=== PATIENT | female | born 1940 | race Caucasian/White ===

== ENCOUNTER → 2023-12-25 14:09 | Emergency (ER) | payer OTHER, SELFPAY ==
[2023-12-25 14:14] VITALS: BP 167/96
--- NOTE | 2023-12-25 14:20 | ED.GENMED ---
History of Present Illness
General
Chief Complaint: Fall
Time Seen by Provider: 12/25/23 14:15
History of Present Illness
History of Present Illness:
Patient presents the emergency department after head injury. She had a mechanical fall where she was using her walker and states it got stuck on the ground. She tripped over the side of the walker and struck her head on the corner of the wall.
She was wearing her glasses which damaged the area above her left eyebrow. There wa no loss of consciousness. She denies any injuries elsewhere.
Past History
Past History
ED Past Medical History: Other (Degenerative osteoarthritis and osteoporosis.) and Other (DVT)
ED Past Surgical History: Orthopedic (Right hip revision June 2011, [facility])
Social History
Tobacco: Non-smoker
Alcohol: Occasional
Drug: None
Personal:
Living: with family
Employment: Retired
Family History
Family History: Hypertension
Phy Exam
Physical Exam
Physical Exam:
GENERAL APPEARANCE: NAD, well developed/ well nourished
EYES lids/conjunctiva normal
EARS/NOSE/THROAT Mucous membranes moist, uvula midline without oral pharyngeal erythema, exudate or swelling
HEAD/NECK normocephalic , there are 2 lacerations above the left eyebrow 1 is linear and 3 cm transverse. Lateral to that there is a 4 cm jagged laceration ,neck is supple.
RESPIRATORY respiratory effort normal, speaks in full sentences, no accessory muscle use. Lungs clear to auscultation without rhonchi, wheezes, rales
CARDIAC Regular rate and rhythm, no edema.
ABDOMINAL Soft, ND/NT. No pulsatile masses on exam, rebound tenderness, Ware sign or pain over Mcburney's point.
MUSCLES/EXTREMITIES No abnormal range of motion, no swelling, no tenderness throughout
SKIN Warm, pink and dry. No rashes
NEUROLOGICAL Speech is clear and appropriate. Normal level of consciousness. 5/5 strength in all extremities.
PSYCH Normal mood and affect. Judgement/competence is appropriate
Course
Orders/Labs/Results
Orders:
Orders
12/25/23 14:19
CT Cervical Spine W/o Iv Contr Urgent
Comment:
Reason For Exam: trauma
CT Head W/o Iv Contrast Urgent
Comment:
Reason For Exam: fall with head injury
Tetanus/Diphth/Acelpertussis [Adacel] 0.5 ml IM .ONCE ONE
12/25/23 16:46
Tetanus/Diphth/Acelpertussis [Adacel] 0.5 ml .ROUTE .STK-MED ONE
Vital Signs
Initial and Last Documented VS:
Initial Vital Signs
Temp Pulse Resp BP Pulse Ox
98.0 F 82 16 167/96 96
12/25/23 14:14 12/25/23 14:14 12/25/23 14:14 12/25/23 14:14 12/25/23 14:14
Last Documented Vital Signs
Temp Pulse Resp BP Pulse Ox
98.0 F 85 15 158/81 97
12/25/23 14:14 12/25/23 16:54 12/25/23 16:54 12/25/23 16:54 12/25/23 14:45
Procedures
Laceration Closure
Face:
Status of Wound: clean
Size of Wound in cm: 6
Description of Wound Edges: ragged
Preparation: cleaned with saline
Anesthesia: 1% Lidocaine with epi
Revision/Debridement: routine- no revision
Type of Closure: single layer closure
Skin Closure Material: 6-0 nylon
Number of sutures: 10
*Critical Care Note
Total Time (30-74mins, 75-104mins- exclusive of procedures): Not Applicable
ED Attending Note
ED Attending Note
ED Attending Note:
No intracranial or cervical traumatic injury noted on CT scan. Lacerations repaired without complication. Tetanus addressed. Patient ambulating with her walker at baseline. Stable for close outpatient follow-up.
-
Portions of this chart may have been created with voice recognition software.� Occasional wrong word or��sound alike� substitutions may have occurred due to the inherent limitations of voice recognition software.
Discharge Plan
Departure
Patient Disposition: Home (Routine Discharge)
Date of Disposition: 12/25/23
Time of Disposition: 17:05
Patient with high blood pressure during this ER visit?: Yes
Discharge Problem:
Face lacerations, Closed head injury
Prescriptions:
No Action
latanoprost 1 DROP drops
1 drp BOTH EYES HS
calcium carbonate [Oyster Shell Calcium 500] 500 MG tablet
500 mg PO DAILY
ascorbic acid (vitamin C) [Vitamin C] 500 MG tablet
500 mg PO DAILY
B-complex with vitamin C 1 CAPLET tablet
1 cap PO DAILY
cholecalciferol (vitamin D3) 1,000 UNITS tablet
1,000 units PO BID
Prolia 60 MG/ML syringe
60 mg SQ [id number]
multivitamin with folic acid [Tab-A-Aria] 1 TABLET tablet
1 tab PO DAILY
Referrals:
Taho Morton MD [Family Provider] -
Activity Restrictions/Additional Instructions:
sutures out in 5-7 days
return to ER with new or worsening symptoms
Interventions
Interventions:
*Risk Screen - Suicide Last Done: 12/25/23 14:23
*General Assessment Last Done: 12/25/23 14:23
*Neglect/Abuse Screening Last Done: 12/25/23 14:23
*ED COVID-19 Vaccine History Last Done: 12/25/23 14:23
ED-Musculoskeletal Assessment Last Done: 12/25/23 14:26
ED- Neurological Assessment Last Done: 12/25/23 16:53
ED-Skin Assessment Last Done: 12/25/23 16:53
Discharge Date and Time
Print Language: [place]
[2023-12-25 14:21] VITALS: BP 167/96
[2023-12-25 14:25] VITALS: BMI 22.5
[2023-12-25] MEDS: ADACEL 0.5 ML IM (16:46)
[2023-12-25 16:52] VITALS: BP 175/89
[2023-12-25 16:54] VITALS: BP 158/81
== END | disposition home or self-care (01) ==
LOC: EMR 14:09
PROVIDERS: EMERGENCY PHYSICIAN Emergency Medicine; FAMILY PHYSICIAN Family Medicine
DX: S01.81XA Laceration without foreign body of other part of head, initial encounter (principal); S09.90XA Unspecified injury of head, initial encounter; R03.0 Elevated blood-pressure reading, without diagnosis of hypertension; W18.09XA Striking against other object with subsequent fall, initial encounter; Z23 Encounter for immunization; M19.90 Unspecified osteoarthritis, unspecified site; M81.0 Age-related osteoporosis without current pathological fracture; Z86.718 Personal history of other venous thrombosis and embolism; Z88.1 Allergy status to other antibiotic agents; Z88.0 Allergy status to penicillin
CPT/HCPCS: 99284; 12014; 90471; 70450; 72125; 90715

== ENCOUNTER 2024-07-01 20:11 | Emergency (ER) | payer OTHER, SELFPAY ==
[2024-07-01 20:12] VITALS: BP 96/62
[2024-07-01 20:32] LABS: % Basophils 0.8 % (0-2); % Eosinophils 6.6 % (0-6); % Immature Granulocytes 0.3 % (0-0.5); % Lymphocytes 22.6 % (20.5-51.1); % Monocytes 11.8 % (1.7-9.3); % Neutrophils 57.9 % (42.2-75.2); Absolute Basophils 0.1 10^3/uL (0-0.2); Absolute Eosinophils 0.4 10^3/uL (0-0.7); Absolute Lymphocytes 1.5 10^3/uL (1.2-3.4); Absolute Monocytes 0.8 10^3/uL (0.1-0.6); Absolute Neutrophils 3.8 10^3/uL (1.4-6.5); Hemoglobin 12.2 g/dL (12.0-16.0); Mean Corp Hgb Conc. 33.9 g/dL (33.0-37.0); Mean Corpuscular Hgb 31.5 pg (27.0-31.0); Mean Platelet Volume 8.7 fL (7.4-10.4); Nucleated Red Blood Cells % 0 %; Platelet Count 234 10^3/uL (130-400); Red Blood Cell Count 3.87 10^6/uL (4.20-5.40); Red Cell Dist. Width 13.7 % (11.5-14.5); White Blood Cell Count 6.5 10^3/uL (4.8-10.8)
[2024-07-01 20:58] LABS: Urine Albumin 1+ (Neg - Trace); Urine Bilirubin Negative (Negative); Urine Character Clear (Clear); Urine Color Amber; Urine Glucose Negative (Negative); Urine Ketone 1+ (Negative); Urine Leukocyte 1+ (Negative); Urine Nitrite Negative (Negative); Urine Occult Blood 1+ (Negative); Urine Urobilinogen 1+ (Neg - 1+)
[2024-07-01 21:11] LABS: ALT (SGPT) 16 U/L (0-35); AST (SGOT) 24 U/L (14-36); Albumin 4.2 g/dl (3.5-5.0); Alkaline Phosphatase 75 U/L (38-126); Blood Urea Nitrogen 38 mg/dl (7-17); Calcium 10.2 mg/dl (8.4-10.2); Carbon Dioxide 27 mmol/L (22-30); Chloride 106 mmol/L (98-107); Glucose 94 mg/dl (70-99); Sodium 141 mmol/L (135-145); Total Bilirubin 0.8 mg/dl (0.2-1.3); eGFR > 60.00
[2024-07-01 21:26] LABS: Urine Bacteria Few (Negative); Urine Calcium Oxalate Crystals Present; Urine Red Blood Cell 0-2 /HPF (0-2); Urine Squamous Cell 16-20 /LPF (Few); Urine White Cell 0-2 /HPF (0-5)
[2024-07-01 23:25] VITALS: BP 134/81
[2024-07-01 23:36] VITALS: BMI 20.9
--- NOTE | 2024-07-01 23:41 | ED.GENMED ---
History of Present Illness
General
Chief Complaint: Change in Mental Status
Source: patient and family
Time Seen by Provider: 07/01/24 23:24
History of Present Illness
History of Present Illness:
83-year-old female with past medical history of previous DVT presenting to the emergency department for evaluation of intermittent confusion, intermittent visual hallucinations and daughter being concern for patient having a possible urinary tract
infection. Patient states she feels as if she is in her usual state of health. Daughter does note that they are currently working the patient up as an outpatient for these episodes of confusion and falls, had an MRI done at [place] on Thursday
but they are unaware of these results. Patient currently lives on her own and they have started the process to try and get the patient to a long-term care residence or further help at home but they state they are not fully ready to commit to
anything yet.
Past History
Past History
ED Past Medical History: Other (Degenerative osteoarthritis and osteoporosis.) and Other (DVT)
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
Social History
Tobacco: Non-smoker
Alcohol: Occasional
Drug: None
Personal:
Living: alone
Employment: Retired
Family History
Family History: Hypertension
Review of Systems
Review of Systems
All Other Systems: ROS reviewed and negative except as documented in HPI and ROS
Phy Exam
Physical Exam
Physical Exam:
GENERAL: Alert , in no apparent distress
HEAD: Normocephalic atraumatic
EYE: conjunctiva clear
NECK: Supple
ENT: o/p clr, mmm.
CARDIAC: Regular rate and rhythm, systolic murmur left sternal border
LUNGS: Clear breath sounds bilaterally, no acute respiratory distress, no wheezes/rales/rhonchi
NEUROLOGICAL: Alert and oriented x 3, answers questions appropriately
SKIN: Warm and dry, skin intact.
MUSCULOSKELETAL: well perfused.
PSYCH: Normal and appropriate interaction.
Scores
Heart Failure Risk
Heart Failure Risk Score: Not Applicable
Heart Score for Chest Pain Patients
STEMI patient?: Not applicable
Withdrawal Assessment of Alcohol
Withdrawal Assessment Completed?: Not applicable
Course
Orders/Labs/Results
Orders:
Orders
07/01/24 20:24
Complete Blood Count/With Diff Urgent
Comprehensive Metabolic Panel Urgent
Creatine Phosphokinase Urgent
Comment: ADD ON
07/01/24 20:50
Urinalysis Reflex To Culture Urgent
Date Specimen was Collected: 07/01/24
Time Specimen was Collected: 20:17
Urine Microscopic Reflex Cult Urgent
Urine Culture Urgent
TESSA Source: U
Specimen Description:
Date Specimen was Collected: 07/01/24
Time Specimen was Collected: 20:17
07/01/24 23:24
Add On- LAB Urgent
Tests Added?: CPK
0.9% Sodium Chloride 1000 ml [Nss] 1,000 ml IV BOLUS
07/01/24 23:36
Case Management Consult ONCE
Case Management Consult: VN/Home Care
Abnormal Lab Results
07/01/24 07/01/24
20:24 20:50
RBC 3.87 L 10^6/uL
(4.20-5.40)
Hct 36.0 L %
(37.0-47.0)
MCH 31.5 H pg
(27.0-31.0)
Absolute Monos (auto) 0.8 H 10^3/uL
(0.1-0.6)
Monocytes % 11.8 H %
(1.7-9.3)
Eosinophils % 6.6 H %
(0-6)
BUN 38 H mg/dl
(7-17)
Urine Ketones 1+ A
(Negative)
Ur Occult Blood Reflex 1+ A
(Negative)
Leukocyte Esterase Rfl 1+ A
(Negative)
Urine Bacteria (Reflex) Few A
(Negative)
Urine Albumin (Reflex) 1+ A
(Neg - Trace)
07/01/24 20:24
07/01/24 20:24
Vital Signs
Initial and Last Documented VS:
Initial Vital Signs
Temp Pulse Resp BP Pulse Ox
97.5 F 75 18 96/62 99
07/01/24 20:12 07/01/24 20:12 07/01/24 20:12 07/01/24 20:12 07/01/24 20:12
Last Documented Vital Signs
Temp Pulse Resp BP Pulse Ox
97.5 F 70 20 134/81 99
07/01/24 20:12 07/01/24 23:25 07/01/24 23:25 07/01/24 23:25 07/01/24 23:25
MDM/Problems Addressed
Differential Diagnosis Includes:
UTI, dehydration, electrolyte derangement, dementia
MDM/Problems Addressed:
83-year-old female presenting to the ER for evaluation of intermittent confusion and intermittent visual hallucinations. Patient asymptomatic at present. She is otherwise hemodynamically stable and well-appearing. Patient currently lives at home
on her own, has been falling more frequently, does have a rollator that she uses religiously. Labs and urine initiated on arrival which are mostly reassuring, BUN slightly elevated at 38. Will treat this with fluids. On record review patient had
a similar presentation about 2 years ago and was found to be in rhabdomyolysis. CPK added onto patient's labs. I did order a case management consult to help facilitate some further home care for the time being as patient ultimately wants to be
discharged home. As long as CPK not significantly elevated I do think this is a reasonable option and both patient and daughter are okay with this as well.
*Pulse Oximetry
Patient hypoxic: no
*Critical Care Note
Total Time (30-74mins, 75-104mins- exclusive of procedures): Not Applicable
Data Reviewed
Review of Other/Old Records Reveals: Labs, Records and Discharge Summary
Patient Management
Social determinants of health affecting care: Living situation and Strong social support
Escalation/DeEscalation of care consider admission/obs:
Patient CPK is within normal limits. She remains hemodynamic in no acute distress, answers all questions appropriately. Both patient and daughter the patient home. Case management to provide further help on an outpatient basis when they return to
the hospital in the morning.
ED Attending Note
-
Portions of this chart may have been created with voice recognition software.� Occasional wrong word or��sound alike� substitutions may have occurred due to the inherent limitations of voice recognition software.
Discharge Plan
Departure
Patient Disposition: Home (Routine Discharge)
Date of Disposition: 07/02/24
Time of Disposition: 00:11
Patient with high blood pressure during this ER visit?: No
Discharge Problem:
Intermittent confusion
Instructions: Delirium (confusion)
Prescriptions:
No Action
latanoprost 1 DROP drops
1 drp BOTH EYES HS
calcium carbonate [Oyster Shell Calcium 500] 500 MG tablet
500 mg PO DAILY
ascorbic acid (vitamin C) [Vitamin C] 500 MG tablet
500 mg PO DAILY
B-complex with vitamin C 1 CAPLET tablet
1 cap PO DAILY
cholecalciferol (vitamin D3) 1,000 UNITS tablet
1,000 units PO BID
Prolia 60 MG/ML syringe
60 mg SQ [id number]
multivitamin with folic acid [Tab-A-Aria] 1 TABLET tablet
1 tab PO DAILY
Interventions
Interventions:
*Risk Screen - Suicide Last Done: 07/01/24 20:12
*General Assessment Last Done: 07/01/24 20:12
*Neglect/Abuse Screening Last Done: 07/01/24 20:12
*ED COVID-19 Vaccine History Last Done: 07/01/24 20:12
ED- Pulmonary Assessment Last Done: 07/01/24 23:48
ED- Neurological Assessment Last Done: 07/01/24 23:48
ED- Cardiac Assessment Last Done: 07/01/24 23:48
Discharge Date and Time
Print Language: INDIAN
[2024-07-01] MEDS: NSS 1000 IV (23:42)
[2024-07-01 23:54] LABS: Creatine Phosphokinase 66 U/L (30-135)
[2024-07-02] VITALS: BP 131/57
--- NOTE | 2024-07-02 11:28 | CM ---
Patient was in the ED overnight
Consult for Home Health/VN completed via phone this morning with patient and daughter in lawLydia
Patient lives alone in a one floor home; family reported that patient needs some assistance with personal care
Home Health options discussed; [facility] preference; [facility]
Plan: discharged to home with Home Health/VN
== END 2024-07-02 01:02 | disposition home or self-care (01) ==
LOC: EMR 20:11
PROVIDERS: Emergency Medicine; EMERGENCY PHYSICIAN Student in an Organized Health Care Education/Training Program; FAMILY PHYSICIAN Family Medicine
DX: R41.0 Disorientation, unspecified (principal); Z86.718 Personal history of other venous thrombosis and embolism
CPT/HCPCS: 99284; 96360; 80053; 81003; 81015; 82550; 85025; 87086

== ENCOUNTER 2024-07-30 19:48 | Emergency (ER) | payer OTHER, SELFPAY ==
[2024-07-30 19:51] VITALS: BP 147/76
[2024-07-30 19:59] VITALS: BMI 21.4
[2024-07-30 20:17] LABS: % Basophils 0.8 % (0-2); % Eosinophils 3.4 % (0-6); % Immature Granulocytes 0.3 % (0-0.5); % Lymphocytes 23.2 % (20.5-51.1); % Neutrophils 61.3 % (42.2-75.2); Absolute Basophils 0.1 10^3/uL (0-0.2); Absolute Eosinophils 0.2 10^3/uL (0-0.7); Absolute Lymphocytes 1.7 10^3/uL (1.2-3.4); Absolute Monocytes 0.8 10^3/uL (0.1-0.6); Absolute Neutrophils 4.4 10^3/uL (1.4-6.5); Hematocrit 33.9 % (37.0-47.0); Hemoglobin 11.8 g/dL (12.0-16.0); Mean Corp Hgb Conc. 34.8 g/dL (33.0-37.0); Mean Corpuscular Hgb 31.9 pg (27.0-31.0); Mean Corpuscular Volume 91.6 fL (81.0-99.0); Mean Platelet Volume 8.9 fL (7.4-10.4); Nucleated Red Blood Cells % 0 %; Platelet Count 301 10^3/uL (130-400); Red Cell Dist. Width 12.6 % (11.5-14.5); White Blood Cell Count 7.1 10^3/uL (4.8-10.8)
[2024-07-30 20:31] LABS: ALT (SGPT) 11 U/L (0-35); AST (SGOT) 20 U/L (14-36); Albumin 3.5 g/dl (3.5-5.0); Alkaline Phosphatase 68 U/L (38-126); Blood Urea Nitrogen 18 mg/dl (7-17); Calcium 10.7 mg/dl (8.4-10.2); Carbon Dioxide 28 mmol/L (22-30); Chloride 104 mmol/L (98-107); Estimated Creatinine Clearance 51 ml/min; Glucose 92 mg/dl (70-99); Potassium 4.1 mmol/L (3.5-5.1); Sodium 140 mmol/L (135-145); Total Bilirubin 0.6 mg/dl (0.2-1.3); Total Protein 6.7 g/dl (6.3-8.2); eGFR > 60.00
--- NOTE | 2024-07-30 21:53 | ED.GENMED ---
History of Present Illness
General
Chief Complaint: Rectal Bleeding
Source: patient
Exam Limitations: none
Time Seen by Provider: 07/30/24 20:19
Nursing documentation reviewed up to this point in time: agreed with
History of Present Illness
History of Present Illness:
Patient with history of constipation, with lack of bowel movement despite urge over the past 3 days, presents to ED after noting blood with bowel movement this evening. Patient states that she noted pinkish color in the toilet after bowel movement.
Denies abdominal pain. Denies rectal pain. Denies recent illness. Denies nausea or vomiting. Denies fever or chills. Patient has taken gnli-azw-vgruthg stool softeners in the past, which she is not taking currently. The patient is currently
at rehab facility, secondary to multiple falls recently.
Past History
Past History
ED Past Medical History: Other (Degenerative osteoarthritis and osteoporosis.) and Other (DVT)
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
Social History
Tobacco: Non-smoker
Alcohol: Occasional
Drug: None
Personal:
Living: alone
Employment: Retired
Family History
Family History: Hypertension
Review of Systems
Review of Systems
Allergies reviewed?: Yes
All Other Systems: ROS reviewed and negative except as documented in HPI and ROS
Constitutional: Reports no symptoms; Denies fever
Respiratory: Reports no symptoms
Cardiac: Reports no symptoms
ABD/GI: Reports constipated; Denies abdominal pain, vomiting or diarrhea
Musculoskeletal: Reports no symptoms
Skin: Reports no symptoms
Neurological: Reports no symptoms
Phy Exam
Physical Exam
Physical Exam:
Physical Exam
General: no apparent distress, not acutely ill. afebrile
Head: nc/at. eomi
Neck: supple. no meningeal signs.
Heart: s1/s2 regular rate and rhythm
Lungs: no acute respiratory distress. clear bilaterally
Abdomen: normal bowel sounds. not tender. rectal exam (JORGE Wilkins, at bedside): no hemorrhoid. brown stool, heme negative. hard stools noted
Neuro: alert and oriented x 3. no focal neurological deficits
Skin: no rash
Psychiatric: well kept. interactive and cooperative
Extremities: no edema. no calf tenderness.
Course
Orders/Labs/Results
Orders:
Orders
07/30/24 20:06
Complete Blood Count/With Diff Urgent
Comprehensive Metabolic Panel Urgent
07/30/24 21:47
Phosphate Enema [Fleet Phosphate Enema-Adult] 135 ml RECTAL NOW STA
Abnormal Lab Results
07/30/24
20:06
RBC 3.70 L 10^6/uL
(4.20-5.40)
Hgb 11.8 L g/dL
(12.0-16.0)
Hct 33.9 L %
(37.0-47.0)
MCH 31.9 H pg
(27.0-31.0)
Absolute Monos (auto) 0.8 H 10^3/uL
(0.1-0.6)
Monocytes % 11.0 H %
(1.7-9.3)
BUN 18 H mg/dl
(7-17)
Calcium 10.7 H mg/dl
(8.4-10.2)
07/30/24 20:06
07/30/24 20:06
Vital Signs
Initial and Last Documented VS:
Initial Vital Signs
Temp Pulse Resp BP Pulse Ox
98.6 F 78 12 147/76 98
07/30/24 19:51 07/30/24 19:51 07/30/24 19:51 07/30/24 19:51 07/30/24 19:51
Last Documented Vital Signs
Temp Pulse Resp BP Pulse Ox
98.6 F 89 18 135/70 84
07/30/24 19:51 07/30/24 22:15 07/30/24 22:15 07/30/24 22:00 07/30/24 21:00
MDM/Problems Addressed
MDM/Problems Addressed:
Patient with stable H&H, along with heme-negative stool. Patient does not take any blood thinning medications. However, hard balls of stool noted on exam, which was removed by myself. Patient will be given Fleet enema prior to discharge, with
recommendation to continue bowel regimen upon returning to rehab.
*Critical Care Note
Total Time (30-74mins, 75-104mins- exclusive of procedures): Not Applicable
ED Attending Note
-
Portions of this chart may have been created with voice recognition software.� Occasional wrong word or��sound alike� substitutions may have occurred due to the inherent limitations of voice recognition software.
Discharge Plan
Departure
Patient Disposition: Residential/SNF
Date of Disposition: 07/30/24
Time of Disposition: 22:10
Discharge Problem:
Constipation
Instructions: Constipation, Adult (DC)
Prescriptions:
No Action
latanoprost 1 DROP drops
1 drp BOTH EYES HS
calcium carbonate [Oyster Shell Calcium 500] 500 MG tablet
500 mg PO DAILY
ascorbic acid (vitamin C) [Vitamin C] 500 MG tablet
500 mg PO DAILY
B-complex with vitamin C 1 CAPLET tablet
1 cap PO DAILY
cholecalciferol (vitamin D3) 1,000 UNITS tablet
1,000 units PO BID
Prolia 60 MG/ML syringe
60 mg SQ [id number]
multivitamin with folic acid [Tab-A-Aria] 1 TABLET tablet
1 tab PO DAILY
Activity Restrictions/Additional Instructions:
As discussed, you are being discharged back to rehab facility for continual care. Please continue taking stool softeners, as well as laxatives, as needed. Please return to ED with worsening symptoms.
Interventions
Interventions:
*Risk Screen - Suicide Last Done: 07/30/24 19:51
*General Assessment Last Done: 07/30/24 19:51
*Neglect/Abuse Screening Last Done: 07/30/24 19:51
*ED- Fall Risk Assessment Last Done: 07/30/24 20:07
*ED COVID-19 Vaccine History Last Done: 07/30/24 20:07
*Nursing Disposition Last Done: 07/30/24 22:30
TR-Kwgekc-Wfomflqjjv Assessment Last Done: 07/30/24 19:59
ED- Cardiac Assessment Last Done: 07/30/24 19:59
ED- Pulmonary Assessment Last Done: 07/30/24 19:59
Discharge Date and Time
Discharge Date/Time: 07/30/24 22:30
Print Language: TRINIDADIAN
[2024-07-30 22:00] VITALS: BP 135/70
[2024-07-30] MEDS: FLEET PHOSPHATE ENEMA-ADULT 135 ML RECTAL (22:09)
== END 2024-07-30 22:30 ==
LOC: EMR 19:48
PROVIDERS: EMERGENCY PHYSICIAN Emergency Medicine; FAMILY PHYSICIAN Family Medicine
DX: K59.00 Constipation, unspecified (principal); M19.90 Unspecified osteoarthritis, unspecified site; M81.0 Age-related osteoporosis without current pathological fracture; Z82.49 Family history of ischemic heart disease and other diseases of the circulatory system; Z86.718 Personal history of other venous thrombosis and embolism
CPT/HCPCS: 99283; 80053; 85025

== ENCOUNTER 2024-08-04 11:12 | Emergency (ER) | payer OTHER, SELFPAY ==
[2024-08-04 11:15] VITALS: BP 120/59
--- NOTE | 2024-08-04 13:07 | ED.GENMED ---
History of Present Illness
General
Chief Complaint: Musculo-Skeletal Complaint
Time Seen by Provider: 08/04/24 12:04
History of Present Illness
History of Present Illness:
8-year-old female presents the emergency department for evaluation of right knee pain not routinely take NSAIDs. Denies any injuries or falls. She can bear weight however with increasing difficulty.
Past History
Past History
ED Past Medical History: Other (Degenerative osteoarthritis and osteoporosis.) and Other (DVT)
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
Social History
Tobacco: Non-smoker
Alcohol: Occasional
Drug: None
Personal:
Living: alone
Employment: Retired
Family History
Family History: Hypertension
Review of Systems
Review of Systems
Allergies reviewed?: Yes
All Other Systems: ROS reviewed and negative except as documented in HPI and ROS
Phy Exam
Physical Exam
Physical Exam:
GEN: Well appearing, NAD, WDWN
HEENT: Oral mucosa moist, no scleral icterus
Cardiac: Regular rate
Lung: No respiratory distress, no tachypnea
MSK: Valgus deformity of the knee consistent with secondary to pain
Skin: Good color, no pallor or jaundice, no rashes
Neuro: AO x3, moves all extremities freely
Psych: Calm, cooperative
Course
Orders/Labs/Results
Orders:
Orders
08/04/24 11:17
Knee, Right 4 or More Views [CR Knee- Right 4 Or More View*] Urgent
Comment:
Reason For Exam: pain
08/04/24 13:08
Ketorolac [Toradol] 30 mg IM NOW STA
Vital Signs
Initial and Last Documented VS:
Initial Vital Signs
Temp Pulse Resp BP Pulse Ox
98.4 F 86 18 120/59 97
08/04/24 11:15 08/04/24 11:15 08/04/24 11:15 08/04/24 11:15 08/04/24 11:15
Last Documented Vital Signs
Temp Pulse Resp BP Pulse Ox
98.4 F 81 16 124/74 97
08/04/24 11:15 08/04/24 13:16 08/04/24 13:16 08/04/24 13:16 08/04/24 13:16
MDM/Problems Addressed
MDM/Problems Addressed:
Likely pain due to severe degenerative disease of the knee. Recommend NSAIDs for short duration, outpatient orthopedic follow-up
*Critical Care Note
Total Time (30-74mins, 75-104mins- exclusive of procedures): Not Applicable
ED Attending Note
-
Portions of this chart may have been created with voice recognition software.� Occasional wrong word or��sound alike� substitutions may have occurred due to the inherent limitations of voice recognition software.
Discharge Plan
Departure
Patient Disposition: Home (Routine Discharge)
Date of Disposition: 08/04/24
Time of Disposition: 13:08
Patient with high blood pressure during this ER visit?: No
Discharge Problem:
Arthritis of right knee
Instructions: Osteoarthritis
Prescriptions:
New
meloxicam 15 mg tablet
15 mg PO DAILY Qty: 20 0RF
No Action
latanoprost 1 DROP drops
1 drp BOTH EYES HS
calcium carbonate [Oyster Shell Calcium 500] 500 MG tablet
500 mg PO DAILY
ascorbic acid (vitamin C) [Vitamin C] 500 MG tablet
500 mg PO DAILY
B-complex with vitamin C 1 CAPLET tablet
1 cap PO DAILY
cholecalciferol (vitamin D3) 1,000 UNITS tablet
1,000 units PO BID
Prolia 60 MG/ML syringe
60 mg SQ [id number]
multivitamin with folic acid [Tab-A-Aria] 1 TABLET tablet
1 tab PO DAILY
Referrals:
Thao Morton MD [Family Provider] -
Marty Carlson MD [Active] -
Interventions
Interventions:
*Risk Screen - Suicide Last Done: 08/04/24 11:15
*General Assessment Last Done: 08/04/24 11:15
*Neglect/Abuse Screening Last Done: 08/04/24 11:15
*ED- Fall Risk Assessment Last Done: 08/04/24 12:01
*ED COVID-19 Vaccine History Last Done: 08/04/24 12:01
*Nursing Disposition Last Done: 08/04/24 14:20
ED-Musculoskeletal Assessment Last Done: 08/04/24 12:01
Discharge Date and Time
Discharge Date/Time: 08/04/24 14:28
Print Language: TAJIK
[2024-08-04] MEDS: TORADOL 30 MG IM (13:14)
[2024-08-04 13:16] VITALS: BP 124/74
== END 2024-08-04 14:28 | disposition home or self-care (01) ==
LOC: EMR 11:12
PROVIDERS: EMERGENCY PHYSICIAN Emergency Medicine; FAMILY PHYSICIAN Family Medicine
DX: M17.11 Unilateral primary osteoarthritis, right knee (principal); Z86.718 Personal history of other venous thrombosis and embolism; M81.0 Age-related osteoporosis without current pathological fracture
CPT/HCPCS: 96372; 99284; 73564

== ENCOUNTER → 2024-11-15 12:31 | Outpatient (REF) | payer OTHER, SELFPAY | LOC: RAD 12:31 | PROVIDERS: ATTENDING PHYSICIAN Nurse Practitioner Family; FAMILY PHYSICIAN Family Medicine | DX: M25.561 Pain in right knee (principal); G89.29 Other chronic pain | CPT/HCPCS: 73564 ==